=== PATIENT | female | born 1985 | race Caucasian/White ===

== ENCOUNTER 2016-04-03 15:17 | Emergency (ER) | payer MEDICAID, OTHER ==
[~2016-04-03] VITALS: Ht 154.9 cm; Wt 55.0 kg
[2016-04-03 15:19] VITALS: BP 141/74; PULSE 84; RESP 15; TEMP 98.1; O2SAT 99
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
[2016-04-03] MEDS ORDERED: SODIUM CHLOR 0.9% 1000 ML INJ 1,000 ML IV ONE (16:07)
[2016-04-03] MEDS ORDERED: KETOROLAC TROMETHAMINE 60 MG/2 ML (IM) VIAL IM ONE (16:15)
[2016-04-03] MEDS ORDERED: PROCHLORPERAZINE INJ 10 MG/2 ML VIAL IVP ONE (16:15)
[2016-04-03] MEDS ORDERED: diphenhydrAMINE HCL 50 MG/ML VIAL IVP ONE (16:15)
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
[2016-04-03 17:58] VITALS: BP 112/65
== END 2016-04-03 18:00 | disposition home or self-care (01) ==
LOC: NETRI 15:17
DX: G44.319 Acute post-traumatic headache, not intractable (principal); Y04.8XXA Assault by other bodily force, initial encounter
CPT/HCPCS: 70450; 72125; 96372; 96374; 96375; 99284; J0780; J1200; J1885; J7030